=== PATIENT | male | born 1965 | race Caucasian/White ===

== ENCOUNTER 2017-11-01 13:39 | Observation (INO) | payer OTHER ==
[2017-11-01] MEDS ORDERED: cefTRIAXone IN SWFI 1,000 MG/10 ML SYRINGE IVP STA (16:03)
[2017-11-01] MEDS ORDERED: SODIUM CHLORIDE 0.9% 1,000 ML IV STA ×2 (16:03)
[2017-11-01] MEDS ORDERED: VANCOMYCIN IV PER PHARMACY 1 EACH MISC MISCELLANE PRN (16:03)
[2017-11-01] MEDS ORDERED: VANCOMYCIN 2,000 MG in SODIUM CHLORIDE 0.9% 500 ML IVPB STA (16:14)
--- NOTE | 2017-11-01 16:40 | ED ---
Lower Extremity Injury HPI - General Chief Complaint: Extremity Injury, Lower Stated Complaint: MRSA rt foot Time Seen by Provider: 11/01/17 15:55 Source: patient, RN notes reviewed, old records reviewed Mode of arrival: ambulatory Limitations: no limitations - History of Present Illness Initial Comments: Patient is a 52-year-old male presents emergency department today chief complaint of right foot pain. Patient reports that he had a surgery on his right great toe [address] Bell to remove arthritis. He reports that he was sent home and was taking doxycycline. Despite taking doxycycline he continues to have some pain in the toe as well as surrounding his erythema around the incision site. He reports this happened to him before in another orthopedic surgery. He was sent here by his orthopedic Dr. Bell for admission to start IV vancomycin. They may schedule a incision and drainage tomorrow pending how well he responds on antibiotics. He reports no fevers. Denies any streaking or redness up the leg. - Related Data Home Medications Medication Instructions Recorded Confirmed Atorvastatin [Lipitor] 40 mg PO HS 11/01/17 11/01/17 DULoxetine HCL [Cymbalta] 60 mg PO HS 11/01/17 11/01/17 Doxycycline Monohydrate 100 mg PO BID 11/01/17 11/01/17 [Vibramycin] Gabapentin [Neurontin] 300 mg PO HS 11/01/17 11/01/17 L.acidoph,Paracasei, B.lactis 1 cap PO DAILY 11/01/17 11/01/17 [Probiotic] Losartan Potassium 50 mg PO HS 11/01/17 11/01/17 Ubidecarenone [Co Q-10] 100 mg PO HS 11/01/17 11/01/17 diphenhydrAMINE HCL 50 mg PO HS PRN 11/01/17 11/01/17 [Diphenhydramine HCl] Allergies Allergy/AdvReac Type Severity Reaction Status Date / Time sulfamethoxazole Allergy Itching Verified 11/01/17 16:24 [From Bactrim] trimethoprim [From Bactrim] Allergy Itching Verified 11/01/17 16:24 ciprofloxacin [From Cipro] AdvReac Itching Verified 11/01/17 16:24 ciprofloxacin HCl AdvReac Itching Verified 11/01/17 16:24 [From Cipro] Review of Systems ROS Statement: Those systems with pertinent positive or pertinent negative responses have been documented in the HPI. ROS Other: All systems not noted in ROS Statement are negative. Past Medical History Past Medical History: Hyperlipidemia, Skin Disorder Additional Past Medical History / Comment(s): HX PALPITATIONS, RECENT FX RT CLAVICLE WITH ORIF-08/16/13-NOW INFECTED, PAST HX FX TIBIA/FIBULA AND RT ELBOW FX History of Any Multi-Drug Resistant Organisms: None Reported Past Surgical History: Orthopedic Surgery Additional Past Surgical History / Comment(s): ORIF TIB-FIB WITH PINS AND LATER REMOVAL, RT ELBOW SX, RECENT ORIF RT CLAVICLE 08/16/13 Past Anesthesia/Blood Transfusion Reactions: No Reported Reaction Past Psychological History: Anxiety Smoking Status: Never smoker Past Alcohol Use History: None Reported Past Drug Use History: None Reported - Past Family History Daughter(s) Family Medical History: Cancer General Exam - General Exam Comments Initial Comments: Patient is a pleasant 52-year-old male. Alert and oriented. No acute distress. General: Well appearing, well nourished, in no distress. Oriented x 3, normal mood and affect . Ambulating without difficulty. Skin: Good turgor, no rash, unusual bruising or prominent lesions Hair: Normal texture and distribution. HEENT: Head: Normocephalic, atraumatic, no visible or palpable masses, depressions, or scaring. Neck: Supple, without lesions, bruits, or adenopathy, thyroid non-enlarged and non-tender Heart: No cardiomegaly or thrills; regular rate and rhythm, no murmur or gallop Lungs: Clear to auscultation and percussion Extremities: No amputations or deformities, had recent right great toe surgery. Incision site does appear to have some surrounding erythema. This was drawn on with a skin marker. He does have full range of motion of the great toe. Full strength with flexion and extension. Musculoskeletal: Normal gait and station. No misalignment, asymmetry, crepitation, defects, tenderness, masses, effusions, decreased range of motion, instability, atrophy or abnormal strength or tone in the head, neck, spine, ribs , pelvis or extremities. Neurologic: CN 2-12 normal. Sensation to pain, touch, and proprioception normal. DTRs normal in upper and lower extremities. No pathologic reflexes. Psychiatric: Oriented X3, intact recent and remote memory, judgment and insight , normal mood and affect. Limitations: no limitations Course Vital Signs 11/01/17 14:55 Temperature 98.4 F Pulse Rate 104 H Respiratory 18 Rate Blood Pressure 130/67 O2 Sat by Pulse 98 Oximetry Medical Decision Making - Medical Decision Making 52-year-old male sent in by orthopedic for IV antibiotics for an infection of the right great toe. Patient has been taking doxycycline. He had an x-ray on Wednesday. Was evaluated by a surgeon today and sent here for admission. Patient was started on Rocephin and vancomycin. Lab work was obtained. Blood cultures obtained. X-ray completed over the foot. She'll admitted at this time to Dr. Bell for further evaluation and response to IV antibiotics. May need to incision and drainage surgery. - Radiology Data Radiology results: report reviewed Disposition Clinical Impression: Surgical site infection, Cellulitis of right toe, Failure of outpatient treatment Disposition: ADMITTED IP TO THIS HOSP Condition: Good Is patient prescribed a controlled substance at d/c from ED?: No When asked, does pt state using other controlled substances?: No If prescribed controlled substance>3 days was MAPS reviewed?: No If opioid is for acute pain is fill amount 7 days or less?: No If Rx opioid, was Start Talking consent form obtained?: No Referrals: Jorge Alberto Luna DO [Primary Care Provider] - 1-2 days Time of Disposition: 16:39
[2017-11-01] MEDS ORDERED: IBUPROFEN 400 MG TAB PO PRN (16:41)
[2017-11-01] MEDS ORDERED: NALOXONE 0.4 MG/ML 1 ML VIAL IV PRN (16:41)
[2017-11-01] MEDS ORDERED: ACETAMINOPHEN TAB 325 MG TAB PO PRN (16:41)
[2017-11-01] MEDS ORDERED: ALPRAZolam 0.25 MG TAB PO PRN (16:41)
[2017-11-01] MEDS ORDERED: ONDANSETRON 4 MG/2 ML VIAL IVP PRN (16:41)
[2017-11-01] MEDS ORDERED: MORPHINE SULFATE 2 MG/ML SYRINGE IV PRN (16:41)
[2017-11-01 17:05] LABS: Basophils % (A) 1 %; Eosinophils # (A) 0.2 k/uL (0-0.7); Eosinophils % (A) 3 %; HCT 44.8 % (39.0-53.0); HGB 15.7 gm/dL (13.0-17.5); Lymphocytes # (A) 2.3 k/uL (1.0-4.8); Lymphocytes % (A) 34 %; MCH 31.2 pg (25.0-35.0); MCHC 35.1 g/dL (31.0-37.0); Mean Platelet Volume 6.1; Monocytes # (A) 0.4 k/uL (0-1.0); Monocytes % (A) 6 %; Neutrophils # (A) 3.7 k/uL (1.3-7.7); Neutrophils % (A) 55 %; Platelet Count 296 k/uL (150-450); RBC 5.03 m/uL (4.30-5.90); RDW 12.8 % (11.5-15.5); WBC 6.8 k/uL (3.8-10.6)
--- NOTE | 2017-11-01 17:12 | XR ---
EXAMINATION TYPE: XR foot complete RT DATE OF EXAM: 11/01/2017 COMPARISON: NONE HISTORY: 52-year-old male pain and redness, swelling great toe. Surgery 2-3 weeks ago. TECHNIQUE: 3 views FINDINGS: Moderate degenerative joint space narrowing and marginal spurring at the first MTP joint. No acute fr acture, subluxation, or dislocation. Os peroneum noted. IMPRESSION: Moderate first MTP joint OA. No acute osseous abnormality seen.
[2017-11-01 17:15] LABS: ALT 34 U/L (21-72); AST 23 U/L (17-59); Albumin 4.8 g/dL (3.5-5.0); Alkaline Phosphatase 75 U/L (38-126); Anion Gap 12 mmol/L; Blood Urea Nitrogen 14 mg/dL (9-20); Calcium 10.1 mg/dL (8.4-10.2); Carbon Dioxide 28 mmol/L (22-30); Chloride 101 mmol/L (98-107); Glucose 113 mg/dL (74-99); Potassium 4.1 mmol/L (3.5-5.1); Sodium 141 mmol/L (137-145); Total Bilirubin 0.4 mg/dL (0.2-1.3); Total Protein 7.7 g/dL (6.3-8.2)
[2017-11-01] MEDS: Acetaminophen-Codeine 300-30mg TAB PO PRN (19:54)
[2017-11-01] MEDS ORDERED: diphenhydrAMINE 25 MG CAP PO PRN (22:49)
[2017-11-01] MEDS: GABAPENTIN 300 MG CAP PO SCH (23:27)
[2017-11-01] MEDS: ATORVASTATIN 40 MG TAB PO SCH (23:27)
[2017-11-01] MEDS: DULoxetine HCL 60 MG CAPSULE.DR PO SCH (23:27)
[2017-11-01] MEDS: LOSARTAN 50 MG TAB PO SCH (23:27)
[2017-11-01] MEDS: SODIUM CHLORIDE 0.9% 1,000 ML IV SCH (23:29)
[2017-11-02] MEDS: VANCOMYCIN 2,000 MG in SODIUM CHLORIDE 0.9% 500 ML IVPB SCH ×4 (00:07→23:25)
[2017-11-02] MEDS: SODIUM CHLORIDE 0.9% 1,000 ML IV SCH ×3 (03:22→22:42)
[2017-11-02] MEDS ORDERED: PANTOPRAZOLE 40 MG/10 ML VIAL IV SCH (09:00)
--- NOTE | 2017-11-02 11:25 | P.HPOR ---
History of Present Illness H&P Date: 11/02/17 Chief Complaint: Right foot infection The patient is a 52-year-old male who is known to our practice. He underwent a right hallux MTP cheilectomy by Dr. Bell approximately on 10/11/17. He developed some redness, drainage, and swelling of the incision site was placed on Keflex on 10/25/17. The patient seemed to not improve with Keflex and the antibiotic was switched to Doxycycline on 10/28/2017 due to an allergy to Bactrim. The patient is concerned for MRSA infection since he had a previous infection after a clavicle surgery with Dr. Lucas Billingsley that he developed MRSA. He denies fever, chills, rigors, shortness breath, chest pain, and abdominal pain today. The patient was sent to the emergency department yesterday from our office due to concerns of ongoing infection. The patient was started on Vancomycin. We are awaiting evaluation by Dr. Castañeda. The patient seems to be improving on IV antibiotics and the patient feels well today. Review of Systems Constitutional: Denies chills, Denies fatigue, Denies fever Cardiovascular: Denies chest pain, Denies shortness of breath Respiratory: Denies cough Gastrointestinal: Denies abdominal pain, Denies diarrhea, Denies nausea, Denies vomiting Musculoskeletal: right: foot pain, foot swelling Past Medical History Past Medical History: Hyperlipidemia, Skin Disorder Additional Past Medical History / Comment(s): HX PALPITATIONS, RECENT FX RT CLAVICLE WITH ORIF-08/16/13-NOW INFECTED, PAST HX FX TIBIA/FIBULA AND RT ELBOW FX History of Any Multi-Drug Resistant Organisms: None Reported Past Surgical History: Orthopedic Surgery Additional Past Surgical History / Comment(s): ORIF TIB-FIB WITH PINS AND LATER REMOVAL, RT ELBOW SX, RECENT ORIF RT CLAVICLE 08/16/13 Past Anesthesia/Blood Transfusion Reactions: No Reported Reaction Past Psychological History: Anxiety Additional Psychological History / Comment(s): SADD Smoking Status: Never smoker Past Alcohol Use History: None Reported Past Drug Use History: None Reported - Past Family History Daughter(s) Family Medical History: Cancer Medications and Allergies Home Medications Medication Instructions Recorded Confirmed Type Atorvastatin [Lipitor] 40 mg PO HS 11/01/17 11/01/17 History DULoxetine HCL [Cymbalta] 60 mg PO HS 11/01/17 11/01/17 History Doxycycline Monohydrate 100 mg PO BID 11/01/17 11/01/17 History [Vibramycin] Gabapentin [Neurontin] 300 mg PO HS 11/01/17 11/01/17 History L.acidoph,Paracasei, B.lactis 1 cap PO DAILY 11/01/17 11/01/17 History [Probiotic] Losartan Potassium 50 mg PO HS 11/01/17 11/01/17 History Ubidecarenone [Co Q-10] 100 mg PO HS 11/01/17 11/01/17 History diphenhydrAMINE HCL 50 mg PO HS PRN 11/01/17 11/01/17 History [Diphenhydramine HCl] Allergies Allergy/AdvReac Type Severity Reaction Status Date / Time sulfamethoxazole Allergy Itching Verified 11/01/17 16:24 [From Bactrim] trimethoprim [From Bactrim] Allergy Itching Verified 11/01/17 16:24 ciprofloxacin [From Cipro] AdvReac Itching Verified 11/01/17 16:24 ciprofloxacin HCl AdvReac Itching Verified 11/01/17 16:24 [From Cipro] Physical Examination The patient is a 52 y/o male who is in no acute distress. He is alert and oriented x3. On inspection of the patient's right foot, there is a healing incision over the first MTP joint. There is mild erythema surrounding the incision, that appears to be improving. No drainage or fluctuance. Sensation is intact to light touch in the tip of the big toe. Foot is warm and well perfused with brisk capillary refill. Results - Labs Labs: Abnormal Lab Results - Last 24 Hours (Table) 11/01/17 11/01/17 Range/Units 16:42 16:42 Glucose 113 H (74-99) mg/dL Plasma Lactic Acid Toni 2.5 H* (0.7-2.0) mmol/L H & H 11/01/17 Range/Units 16:42 Hgb 15.7 (13.0-17.5) gm/dL Hct 44.8 (39.0-53.0) % Result Diagrams: 11/01/17 16:42 11/01/17 16:42 - Diagnostic results Ankle/Foot x-ray: image reviewed (X-ray of the right foot reveals status post MTP cheilectomy. ) Assessment and Plan (1) Cellulitis of right toe Current Visit: Yes Status: Acute Code(s): L03.031 - CELLULITIS OF RIGHT TOE SNOMED Code(s): 26949109 (2) Failure of outpatient treatment Current Visit: Yes Status: Acute Code(s): Z78.9 - OTHER SPECIFIED HEALTH STATUS SNOMED Code(s): 172682043 (3) Surgical site infection Current Visit: Yes Status: Acute Code(s): T81.4XXA - INFECTION FOLLOWING A PROCEDURE, INITIAL ENCOUNTER SNOMED Code(s): 58677248 Plan: The clinical findings were discussed with the patient. The case was also discussed with Dr. Bell. Continue IV antibiotics. Consult infectious disease, Dr. Castañeda, for antibiotics recommedations. No surgical intervention in the form of an I&D is needed at this time. He will likely be discharged tomorrow pending Dr. Castañeda' recommendation and continued improvement of infection. We will continue to monitor the patient closely.
[2017-11-02] MEDS: Acetaminophen-Codeine 300-30mg TAB PO PRN (17:33)
[2017-11-02] MEDS: LOSARTAN 50 MG TAB PO SCH (20:18)
[2017-11-02] MEDS: ATORVASTATIN 40 MG TAB PO SCH (20:18)
[2017-11-02] MEDS: DULoxetine HCL 60 MG CAPSULE.DR PO SCH (20:19)
[2017-11-02] MEDS: GABAPENTIN 300 MG CAP PO SCH (20:19)
--- NOTE | 2017-11-03 00:25 | P.CONS ---
History of Present Illness - Reason for Consult Consult date: 11/02/17 - Chief Complaint Pain right foot - History of Present Illness Pleasant 52-year-old male who has a history of significant arthritis from prior trauma in foot fracture years ago. Was having increasing difficulty with his great toe and constantly underwent a surgical intervention to improve the arthritis to the area. Patient however developed some increasing discomfort and some erythema to the site. He was treated with outpatient antibiotic therapy first with cephalexin and then with doxycycline. This began back therapy was not improving. He was seen in then brought into hospital for further intervention in antibiotic therapy with vancomycin was begun and the patient is her history to show some improvement. The overall goal is to try to prevent further surgical intervention if possible. The patient is denying high- grade fevers chills or rigors or sweats. 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 He does have a history of a prior clavicular fracture that required several debridements after the original repair and there was evidence of infection, patient relates a staphylococcal infection but we do not have cultures at this facility. Review of Systems HEENT:Denies headache or acute visual change. Denies sinus or mouth discomforts. Denies neck stiffness or pain. Denies significant oral cavity pain. Denies difficulty on swallowing. Lungs: Denies significant shortness of breath, cough, sputum production, or hemoptysis. Cardiovascular: Denies significant shortness of breath, chest pain, chest wall pain, orthopnea, dyspnea on exertion, syncope Gastrointestinal:Denies nausea, vomiting, diarrhea, constipation, hematemesis, melena, hematochezia. No no significant change of bowel habit noticed. Musculoskeletal: As per the HPI Skin: Is evidence of the swelling and discomfort to the right great toe. Neuro : Denies headache or visual change. Denies any new onset weakness or difficulty with ambulation. Denies falls or seizures. Psychiatric:Denies anxiety or depression. Endocrine: Denies significant fatigue, denies significant weight loss or weight gain. Past Medical History Past Medical History: Hyperlipidemia, Skin Disorder Additional Past Medical History / Comment(s): HX PALPITATIONS, RECENT FX RT CLAVICLE WITH ORIF-08/16/13-NOW INFECTED, PAST HX FX TIBIA/FIBULA AND RT ELBOW FX History of Any Multi-Drug Resistant Organisms: None Reported Past Surgical History: Orthopedic Surgery Additional Past Surgical History / Comment(s): ORIF TIB-FIB WITH PINS AND LATER REMOVAL, RT ELBOW SX, RECENT ORIF RT CLAVICLE 08/16/13 Past Anesthesia/Blood Transfusion Reactions: No Reported Reaction Past Psychological History: Anxiety Additional Psychological History / Comment(s): and lives in the family home with his . Frequently travels to [place]. 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 Does have international travel. Most of the time usually goes between [place] and [place]. Most travels been to the [place]. No animals in the home. 2 adult children. Relates father of complications of smoking and lung cancer has been a lifelong nonsmoker denies smoking alcohol or drug use. Smoking Status: Never smoker Past Alcohol Use History: None Reported Past Drug Use History: None Reported - Past Family History Daughter(s) Family Medical History: Cancer Medications and Allergies Home Medications and Allergies Comment(s): Current Medications Acetaminophen (Tylenol Tab) 650 mg PO Q6HR PRN PRN Reason: Mild Pain or Fever > 100.5 Acetaminophen/Codeine Phosphate (Tylenol #3) 1 each PO Q4HR PRN PRN Reason: Moderate Pain Last Admin: 11/02/17 17:33 Dose: 1 each Alprazolam (Xanax) 0.25 mg PO Q6HR PRN PRN Reason: Anxiety Last Admin: 11/02/17 20:19 Dose: 0.25 mg Atorvastatin Calcium (Lipitor) 40 mg PO HS ADOLFO Last Admin: 11/02/17 20:18 Dose: 40 mg Diphenhydramine HCl (Benadryl) 50 mg PO HS PRN PRN Reason: Insomnia Last Admin: 11/01/17 23:27 Dose: 50 mg Duloxetine HCl (Cymbalta) 60 mg PO HS ADOLFO Last Admin: 11/02/17 20:19 Dose: 60 mg Gabapentin (Neurontin) 300 mg PO HS ADOLFO Last Admin: 11/02/17 20:19 Dose: 300 mg Sodium Chloride (Saline 0.9%) 1,000 mls @ 100 mls/hr IV .Q10H ADOLFO Last Admin: 11/02/17 22:42 Dose: Not Given Vancomycin HCl 2,000 mg/ (Sodium Chloride) 500 mls @ 167 mls/hr IVPB Q8HR ADOLFO Last Admin: 11/02/17 23:25 Dose: 167 mls/hr Ibuprofen (Motrin) 400 mg PO Q6HR PRN PRN Reason: Mild Pain or Fever > 100.5 Losartan Potassium (Cozaar) 50 mg PO [facility] Last Admin: 11/02/17 20:18 Dose: 50 mg Miscellaneous Information (Vancomycin Trough Due) 0 each MISCELLANE DIRECTED ONE Stop: 11/03/17 07:01 Morphine Sulfate (Morphine Sulfate (Inj)) 4 mg IV Q4HR PRN PRN Reason: Severe Pain Naloxone HCl (Narcan) 0.2 mg IV Q2M PRN PRN Reason: Opioid Reversal Ondansetron HCl (Zofran) 4 mg IVP Q8HR PRN PRN Reason: Nausea And Vomiting Pantoprazole Sodium (Protonix) 40 mg PO DAILY [facility] Home Medications Medication Instructions Recorded Confirmed Type Atorvastatin [Lipitor] 40 mg PO HS 11/01/17 11/01/17 History DULoxetine HCL [Cymbalta] 60 mg PO HS 11/01/17 11/01/17 History Doxycycline Monohydrate 100 mg PO BID 11/01/17 11/01/17 History [Vibramycin] Gabapentin [Neurontin] 300 mg PO HS 11/01/17 11/01/17 History L.acidoph,Paracasei, B.lactis 1 cap PO DAILY 11/01/17 11/01/17 History [Probiotic] Losartan Potassium 50 mg PO HS 11/01/17 11/01/17 History Ubidecarenone [Co Q-10] 100 mg PO HS 11/01/17 11/01/17 History diphenhydrAMINE HCL 50 mg PO HS PRN 11/01/17 11/01/17 History [Diphenhydramine HCl] Allergies Allergy/AdvReac Type Severity Reaction Status Date / Time sulfamethoxazole Allergy Itching Verified 11/01/17 16:24 [From Bactrim] trimethoprim [From Bactrim] Allergy Itching Verified 11/01/17 16:24 ciprofloxacin [From Cipro] AdvReac Itching Verified 11/01/17 16:24 ciprofloxacin HCl AdvReac Itching Verified 11/01/17 16:24 [From Cipro] Physical Exam Vitals: Vital Signs Temp Pulse Resp BP Pulse Ox 11/02/17 22:44 97.0 F L 78 18 140/81 96 11/02/17 15:00 97.2 F L 86 18 120/71 95 11/02/17 06:31 97.3 F L 72 17 122/71 Intake and Output 11/02/17 11/02/17 11/03/17 14:59 22:59 06:59 Other: # Voids 3 1 1 # Bowel Movements 0 0 Weight 111.13 kg Pleasant 52-year-old male who is quite comfortable at this time HEENT: Anicteric conjunctiva are pink and moist nasal mucosa grossly intact without significant lesions, there is no thrush. Neck: The neck is supple without significant lymphadenopathy or thyromegaly. Lungs: Good bilateral air entry without significant crackles or wheezing. There is no significant bronchial sounds. There is no egophony or dullness. Heart: Regular rate and rhythm with an audible S1-S2, no S3 no S4. There is no significant murmur click or rub, PMI was nondisplaced. Abdomen: Mildly obese Positive bowel sounds soft and nontender without palpable masses or organomegaly. There was no guarding or rebound. Extremities: The upper extremities have excellent pulses they are symmetric, no significant petechiae or telangiectasia. No splinter hemorrhages were noted. The lower extremities are free from significant edema. The peripheral pulses were 2+ and symmetric. The right clavicle that has been repaired has some chronic tenderness but no erythema or crepitance or fluctuance. The right great toe has evidence of the minimal swelling, the surgical wound is healing well, there is some erythema and tenderness to manipulation. There is no expressible purulence. There is no ascending erythema. There is no lymphadenopathy in the inguinal area. No other abnormal lymph nodes are noted. Neuro: Awake alert oriented to person place and time. There are no acute new gross focal sensory motor deficits. Results CBC & Chem 7: 11/01/17 16:42 11/01/17 16:42 Labs: Microbiology - Last 24 Hours (Table) 11/01/17 16:42 Blood Culture - Preliminary Blood No Growth after 24 hours Laboratory Results WBC 6.8 k/uL (3.8-10.6) 11/01/17 16:42 RBC 5.03 m/uL (4.30-5.90) 11/01/17 16:42 Hgb 15.7 gm/dL (13.0-17.5) 11/01/17 16:42 Hct 44.8 % (39.0-53.0) 11/01/17 16:42 MCV 89.0 fL (80.0-100.0) 11/01/17 16:42 MCH 31.2 pg (25.0-35.0) 11/01/17 16:42 MCHC 35.1 g/dL (31.0-37.0) 11/01/17 16:42 RDW 12.8 % (11.5-15.5) 11/01/17 16:42 Plt Count 296 k/uL (150-450) 11/01/17 16:42 Neutrophils % 55 % 11/01/17 16:42 Lymphocytes % 34 % 11/01/17 16:42 Monocytes % 6 % 11/01/17 16:42 Eosinophils % 3 % 11/01/17 16:42 Basophils % 1 % 11/01/17 16:42 Neutrophils # 3.7 k/uL (1.3-7.7) 11/01/17 16:42 Lymphocytes # 2.3 k/uL (1.0-4.8) 11/01/17 16:42 Monocytes # 0.4 k/uL (0-1.0) 11/01/17 16:42 Eosinophils # 0.2 k/uL (0-0.7) 11/01/17 16:42 Basophils # 0.0 k/uL (0-0.2) 11/01/17 16:42 Sodium 141 mmol/L (137-145) 11/01/17 16:42 Potassium 4.1 mmol/L (3.5-5.1) 11/01/17 16:42 Chloride 101 mmol/L (98-107) 11/01/17 16:42 Carbon Dioxide 28 mmol/L (22-30) 11/01/17 16:42 Anion Gap 12 mmol/L 11/01/17 16:42 BUN 14 mg/dL (9-20) 11/01/17 16:42 Creatinine 0.80 mg/dL (0.66-1.25) 11/01/17 16:42 Est GFR (CKD-EPI)AfAm >90 (>60 ml/min/1.73 sqM) 11/01/17 16:42 Est GFR (CKD-EPI)NonAf >90 (>60 ml/min/1.73 sqM) 11/01/17 16:42 Glucose 113 mg/dL (74-99) H 11/01/17 16:42 Lactic Ac Sepsis Rflx Y 11/01/17 17:21 Plasma Lactic Acid Toni 1.3 mmol/L (0.7-2.0) 11/01/17 20:58 Calcium 10.1 mg/dL (8.4-10.2) 11/01/17 16:42 Total Bilirubin 0.4 mg/dL (0.2-1.3) 11/01/17 16:42 AST 23 U/L (17-59) 11/01/17 16:42 ALT 34 U/L (21-72) 11/01/17 16:42 Alkaline Phosphatase 75 U/L (38-126) 11/01/17 16:42 Total Protein 7.7 g/dL (6.3-8.2) 11/01/17 16:42 Albumin 4.8 g/dL (3.5-5.0) 11/01/17 16:42 Microbiology 11/01/17 16:42 Blood Blood Culture - Preliminary No Growth after 24 hours Assessment and Plan Assessment: Pleasant 52-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 He Was Taken to the Operating Room for Debridement of the Joints. He was doing well but then developed evidence of some swelling erythema and discomfort to the site. He was treated with outpatient antibiotic therapy and despite cephalexin and doxycycline he has not had improvement. He was brought into hospital and treated with a course of vancomycin therapy is ready showing some improvements with antibiotic and elevation. Pain control is adequate. We' ll ask for MRI to the site to ensure there is not underlying osteomyelitis to might require further or more intensive antibiotic therapy at the time of his discharge. If there is evidence of underlying osteomyelitis may do well to have a biopsy that site to further characterize the infection. Otherwise with his ALLERGIES there may be the ability to transition him to alternative antibiotic therapy at discharge. The lactic acid was elevated at admission and those are improving with hydration and some antibiotic therapy. Laboratories requested. (1) Cellulitis of right toe Current Visit: Yes Status: Acute Code(s): L03.031 - CELLULITIS OF RIGHT TOE SNOMED Code(s): 79489498 (2) Failure of outpatient treatment Current Visit: Yes Status: Acute Code(s): Z78.9 - OTHER SPECIFIED HEALTH STATUS SNOMED Code(s): 625178229
[2017-11-03] MEDS ORDERED: VANCOMYCIN TROUGH DUE 1 EACH MISC MISCELLANE ONE ×2 (07:00→21:00)
[2017-11-03] MEDS ORDERED: PANTOPRAZOLE 40 MG TABLET PO SCH (09:00)
[2017-11-03] MEDS ORDERED: PANTOPRAZOLE 40 MG TABLET PO ONE (09:00)
[2017-11-03 09:23] LABS: Anion Gap 7 mmol/L; Blood Urea Nitrogen 11 mg/dL (9-20); Carbon Dioxide 30 mmol/L (22-30); Chloride 104 mmol/L (98-107); Glucose 105 mg/dL (74-99); Potassium 4.8 mmol/L (3.5-5.1); Sodium 141 mmol/L (137-145)
[2017-11-03] MEDS: SODIUM CHLORIDE 0.9% 1,000 ML IV SCH ×2 (10:57→18:48)
[2017-11-03] MEDS: VANCOMYCIN 2,000 MG in SODIUM CHLORIDE 0.9% 500 ML IVPB SCH (10:57)
--- NOTE | 2017-11-03 11:21 | P.PN ---
Subjective Progress Note Date: 11/03/17 Principal diagnosis: Right foot infection The patient is a 52 y/o male who we have been following closely for an infection post-operatively of his right foot. The patient was sent to the ER two days ago for IV antibiotics and infectious disease evaluation. Dr. Castañeda has seen the patient and ordered an MRI of the right foot. He seems to be improving on IV vancomycin. Today, he denies fever, chills, rigors, chest pain , shortness of breath, and abdominal pain. No new complaints today. Objective - Vital Signs Vital signs: Vital Signs Temp 97.0 F L 11/02/17 22:44 Pulse 78 11/02/17 22:44 Resp 18 11/02/17 22:44 BP 140/81 11/02/17 22:44 Pulse Ox 96 11/02/17 22:44 Intake & Output 11/02/17 11/03/17 11/03/17 18:59 06:59 18:59 Weight 111.13 kg Other: # Voids 2 1 # Bowel Movements 0 - Exam The patient is a 52-year-old male who is in no acute distress. He is alert and oriented 3. On inspection of the patient's right foot, there is a healing incision over the first MTP joint. There is mild erythema surrounding the incision, that appears to be improving since admission. No drainage or fluctuance noted. Sensation intact to light touch to the tip of the big toe. Foot is warm and well perfused with brisk cap refill. - Labs CBC & Chem 7: 11/01/17 16:42 11/01/17 16:42 Labs: Microbiology - Last 24 Hours (Table) 11/01/17 16:42 Blood Culture - Preliminary Blood No Growth after 24 hours Assessment and Plan (1) Cellulitis of right toe Current Visit: Yes Status: Acute Code(s): L03.031 - CELLULITIS OF RIGHT TOE SNOMED Code(s): 49745787 (2) Failure of outpatient treatment Current Visit: Yes Status: Acute Code(s): Z78.9 - OTHER SPECIFIED HEALTH STATUS SNOMED Code(s): 833206540 (3) Surgical site infection Current Visit: Yes Status: Acute Code(s): T81.4XXA - INFECTION FOLLOWING A PROCEDURE, INITIAL ENCOUNTER SNOMED Code(s): 05596500 Plan: The clinical findings were discussed with the patient. The case was also discussed with Dr. Bell. He was evaluated by Dr. Bell today. Continue IV antibiotics. We will await MRI results and antibiotics recommedations per Dr. Castañeda. No surgical intervention in the form of an I&D is needed at this time. He will likely be discharged later today pending Dr. Castañeda' recommendation and continued improvement of infection. We will continue to monitor the patient closely.
[2017-11-03] MEDS ORDERED: VANCOMYCIN 2,000 MG in SODIUM CHLORIDE 0.9% 500 ML IVPB SCH (14:00)
[2017-11-03 14:31] LABS: C Reactive Protein <5.0 mg/L (<10.0)
--- NOTE | 2017-11-03 15:17 | MR ---
MRI right foot with and without contrast HISTORY: Osteomyelitis of right great toe, wound, pain and erythema and swelling Correlation to right foot 11/01/2017 Multiplanar multisequence and postcontrast images obtained through the right foot following 10 cc David avist IV There is edema within the soft tissues dorsal to the first digit especially at the level of the metat arsophalangeal joint. Bone marrow signal is remarkable for small focus of increased signal on T2-weig hted sequences in the subchondral location at distal first metatarsal which I suspect may represent g eode formation, there is osteoarthritic change with joint space loss, marginal spurring at this level . Flexor and extensor tendons are intact. There is some enhancement of the dorsal soft tissues of the first digit. IMPRESSION: Findings felt likely represent cellulitis, follow-up as indicated. Osteomyelitis is not e vident. Additional findings above.
[2017-11-03 15:43] VITALS: BP 128/81; TEMP 98.3
[2017-11-03 20:02] VITALS: PULSE 95; RESP 14
--- NOTE | 2017-11-03 22:08 | P.PN ---
Subjective Progress Note Date: 11/03/17 Mirna 52-year-old male who has a history of significant arthritis from prior trauma in foot fracture years ago. Was having increasing difficulty with his great toe and constantly underwent a surgical intervention to improve the arthritis to the area. Patient however developed some increasing discomfort and some erythema to the site. He was treated with outpatient antibiotic therapy first with cephalexin and then with doxycycline. This began back therapy was not improving. He was seen in then brought into hospital for further intervention in antibiotic therapy with vancomycin was begun and the patient is her history to show some improvement. The overall goal is to try to prevent further surgical intervention if possible. The patient is denying high- grade fevers chills or rigors or sweats. 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 He does have a history of a prior clavicular fracture that required several debridements after the original repair and there was evidence of infection, patient relates a staphylococcal infection but we do not have cultures at this facility. 11/03/2017 patient has improved further, MRI is complete and does not reveal evidence of osteomyelitis. Objective - Vital Signs Vital signs: Vital Signs Temp 98.3 F 11/03/17 15:00 Pulse 95 11/03/17 16:30 Resp 14 11/03/17 16:30 BP 128/81 11/03/17 15:00 Pulse Ox 94 L 11/03/17 15:00 Intake & Output 11/03/17 11/03/17 11/04/17 06:59 18:59 06:59 Weight 111.13 kg Other: Voiding Method Toilet # Voids 1 2 # Bowel Movements 0 - Exam Mirna 52-year-old male who is quite comfortable at this time HEENT: Anicteric conjunctiva are pink and moist nasal mucosa grossly intact without significant lesions, there is no thrush. Neck: The neck is supple without significant lymphadenopathy or thyromegaly. Lungs: Good bilateral air entry without significant crackles or wheezing. There is no significant bronchial sounds. There is no egophony or dullness. Heart: Regular rate and rhythm with an audible S1-S2, no S3 no S4. There is no significant murmur click or rub, PMI was nondisplaced. Abdomen: Mildly obese Positive bowel sounds soft and nontender without palpable masses or organomegaly. There was no guarding or rebound. Extremities: The upper extremities have excellent pulses they are symmetric, no significant petechiae or telangiectasia. No splinter hemorrhages were noted. The lower extremities are free from significant edema. The peripheral pulses were 2+ and symmetric. The right clavicle that has been repaired has some chronic tenderness but no erythema or crepitance or fluctuance. The right great toe has evidence of the minimal swelling, the surgical wound is healing well, there is some erythema and tenderness to manipulation. There is no expressible purulence. There is no ascending erythema. There is no lymphadenopathy in the inguinal area. No other abnormal lymph nodes are noted. Neuro: Awake alert oriented to person place and time. There are no acute new gross focal sensory motor deficits. - Labs CBC & Chem 7: 11/01/17 16:42 11/03/17 07:07 Labs: Abnormal Lab Results - Last 24 Hours (Table) 11/03/17 Range/Units 07:07 Glucose 105 H (74-99) mg/dL Microbiology - Last 24 Hours (Table) 11/01/17 16:42 Blood Culture - Preliminary Blood No Growth after 48 hours Laboratory Results WBC 6.8 k/uL (3.8-10.6) 11/01/17 16:42 RBC 5.03 m/uL (4.30-5.90) 11/01/17 16:42 Hgb 15.7 gm/dL (13.0-17.5) 11/01/17 16:42 Hct 44.8 % (39.0-53.0) 11/01/17 16:42 MCV 89.0 fL (80.0-100.0) 11/01/17 16:42 MCH 31.2 pg (25.0-35.0) 11/01/17 16:42 MCHC 35.1 g/dL (31.0-37.0) 11/01/17 16:42 RDW 12.8 % (11.5-15.5) 11/01/17 16:42 Plt Count 296 k/uL (150-450) 11/01/17 16:42 Neutrophils % 55 % 11/01/17 16:42 Lymphocytes % 34 % 11/01/17 16:42 Monocytes % 6 % 11/01/17 16:42 Eosinophils % 3 % 11/01/17 16:42 Basophils % 1 % 11/01/17 16:42 Neutrophils # 3.7 k/uL (1.3-7.7) 11/01/17 16:42 Lymphocytes # 2.3 k/uL (1.0-4.8) 11/01/17 16:42 Monocytes # 0.4 k/uL (0-1.0) 11/01/17 16:42 Eosinophils # 0.2 k/uL (0-0.7) 11/01/17 16:42 Basophils # 0.0 k/uL (0-0.2) 11/01/17 16:42 ESR 10 mm/hr (0-15) 11/03/17 07:02 Sodium 141 mmol/L (137-145) 11/03/17 07:07 Potassium 4.8 mmol/L (3.5-5.1) 11/03/17 07:07 Chloride 104 mmol/L (98-107) 11/03/17 07:07 Carbon Dioxide 30 mmol/L (22-30) 11/03/17 07:07 Anion Gap 7 mmol/L 11/03/17 07:07 BUN 11 mg/dL (9-20) 11/03/17 07:07 Creatinine 0.92 mg/dL (0.66-1.25) 11/03/17 07:07 Est GFR (CKD-EPI)AfAm >90 (>60 ml/min/1.73 sqM) 11/03/17 07:07 Est GFR (CKD-EPI)NonAf >90 (>60 ml/min/1.73 sqM) 11/03/17 07:07 Glucose 105 mg/dL (74-99) H 11/03/17 07:07 Lactic Ac Sepsis Rflx Y 11/01/17 17:21 Plasma Lactic Acid Toni 1.3 mmol/L (0.7-2.0) 11/01/17 20:58 Calcium 9.0 mg/dL (8.4-10.2) 11/03/17 07:07 Total Bilirubin 0.4 mg/dL (0.2-1.3) 11/01/17 16:42 AST 23 U/L (17-59) 11/01/17 16:42 ALT 34 U/L (21-72) 11/01/17 16:42 Alkaline Phosphatase 75 U/L (38-126) 11/01/17 16:42 C-Reactive Protein <5.0 mg/L (<10.0) 11/03/17 07:07 Total Protein 7.7 g/dL (6.3-8.2) 11/01/17 16:42 Albumin 4.8 g/dL (3.5-5.0) 11/01/17 16:42 Vancomycin Trough 26.6 ug/mL 11/03/17 07:07 Microbiology 11/01/17 16:42 Blood Blood Culture - Preliminary No Growth after 48 hours - Imaging and Cardiology MRI viewed and is without evidence of osteomyelitis, septic arthritis or abscess Assessment and Plan Assessment: Pleasant 52-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 He Was Taken to the Operating Room for Debridement of the Joints. He was doing well but then developed evidence of some swelling erythema and discomfort to the site. He was treated with outpatient antibiotic therapy and despite cephalexin and doxycycline he has not had improvement. He was brought into hospital and treated with a course of vancomycin therapy is ready showing some improvements with antibiotic and elevation. Pain control is adequate. We' ll ask for MRI to the site to ensure there is not underlying osteomyelitis to might require further or more intensive antibiotic therapy at the time of his discharge. If there is evidence of underlying osteomyelitis may do well to have a biopsy that site to further characterize the infection. Otherwise with his ALLERGIES there may be the ability to transition him to alternative antibiotic therapy at discharge. The lactic acid was elevated at admission and those are improving with hydration and some antibiotic therapy. Laboratories requested. 11/03/2017 patient has improved with current therapy and feels better, less anxious about the toe. MRI is without evidence of deep infection and ESR and CRP are normal also corroborate the lack of deep infection. The patient relates that when he had his clavicular infection he was treated with antibiotic therapy and developed a rash when given intravenous Bactrim along with ciprofloxacin. He has taken oral Bactrim in the past with no difficulties. The patient will complete his dose of vancomycin currently. He will start oral Bactrim the morning and contact me if there is any difficulties. He may be discharged home. No evidence of any deep infection and any restrictions as per the orthopedic surgeon. (1) Cellulitis of right toe Status: Acute Code(s): L03.031 - CELLULITIS OF RIGHT TOE SNOMED Code(s): 53507180 (2) Failure of outpatient treatment Status: Acute Code(s): Z78.9 - OTHER SPECIFIED HEALTH STATUS SNOMED Code(s) : 487545453
--- NOTE | 2017-11-09 09:31 | P.DS ---
Providers Date of admission: 11/01/17 16:41 Expected date of discharge: 11/03/17 Attending physician: Lior Bell Consults: 11/02/17 10:24 Consult Physician Routine Consulting Provider: Lazarus Castañeda Consult Reason/Comments: antibiotic recommendations Do you want consulting provider notified?: Yes Primary care physician: Jorge Alberto Luna - Discharge Diagnosis(es) (1) Cellulitis of right toe Status: Acute (2) Failure of outpatient treatment Status: Acute (3) Surgical site infection Status: Acute Hospital Course: The patient is a 52-year-old male who is status post right hallux MTP cheilectomy by Dr. Bell on 10/11/2017. He developed some redness and drainage from the incision site was started on Keflex on 10/25/2017. The patient seemed to not improve on the Keflex and the antibiotic was changed to doxycycline on 10/28/2017 due to an ALLERGY to Bactrim. The patient is concerned about a MRSA infection due to a previous infection with MRSA after clavicle surgery of Dr. Lucas Billingsley.. The patient was started on vancomycin after admission to the hospital. The patient was evaluated by Dr. Castañeda. The infection seemed to improve and an MRI of the right foot was obtained. He now is ready for discharge home today. on the day of discharge, the patient is in no acute distress. He is alert and oriented 3. On inspection of the patient's right foot, there is a healing incision over the first MTP joint. There is mild erythema surrounding the incision, that appears to be improving. No drainage or fluctuance noted. Sensation is intact to light touch to the tip of the big toe. Foot is warm and well perfused with brisk capillary refill. Pertinent Studies: Laboratory Tests 11/01/17 11/01/17 11/01/17 16:42 16:42 20:58 WBC 6.8 RBC 5.03 Hgb 15.7 Hct 44.8 Glucose Plasma Lactic Acid Toni 2.5 H* 1.3 Vancomycin Trough 11/03/17 11/03/17 07:07 07:07 WBC RBC Hgb Hct Glucose 105 H Plasma Lactic Acid Toni Vancomycin Trough 26.6 Patient Condition at Discharge: Stable Plan - Discharge Summary Discharge Rx Participant: Yes New Discharge Prescriptions: New Sulfamethox-Tmp 800-160Mg [Bactrim DS 800-160 mg] 1 tab PO Q12HR #14 tab No Action Ubidecarenone [Co Q-10] 100 mg PO HS Losartan Potassium 50 mg PO HS Atorvastatin [Lipitor] 40 mg PO HS L.acidoph,Paracasei, B.lactis [Probiotic] 1 cap PO DAILY Gabapentin [Neurontin] 300 mg PO HS Doxycycline Monohydrate [Vibramycin] 100 mg PO BID DULoxetine HCL [Cymbalta] 60 mg PO HS diphenhydrAMINE HCL [Diphenhydramine HCl] 50 mg PO HS PRN PRN Reason: Insomnia Discharge Medication List Atorvastatin [Lipitor] 40 mg PO HS 11/01/17 [History] DULoxetine HCL [Cymbalta] 60 mg PO HS 11/01/17 [History] Doxycycline Monohydrate [Vibramycin] 100 mg PO BID 11/01/17 [History] Gabapentin [Neurontin] 300 mg PO HS 11/01/17 [History] L.acidoph,Paracasei, B.lactis [Probiotic] 1 cap PO DAILY 11/01/17 [History] Losartan Potassium 50 mg PO HS 11/01/17 [History] Ubidecarenone [Co Q-10] 100 mg PO HS 11/01/17 [History] diphenhydrAMINE HCL [Diphenhydramine HCl] 50 mg PO HS PRN 11/01/17 [History] Sulfamethox-Tmp 800-160Mg [Bactrim DS 800-160 mg] 1 tab PO Q12HR #14 tab [Rx] Follow up Appointment(s)/Referral(s): Lazarus Castañeda MD [STAFF PHYSICIAN] - As Needed Jorge Alberto Luna DO [Primary Care Provider] - 1-2 days (after hours discharge, patient to make self appointments. ) Lior Bell MD [Medical Doctor] - 1 Week (after hours discharge. patient to make self appointments. ) Patient Instructions/Handouts: Wound Infection (DC) Activity/Diet/Wound Care/Special Instructions: Weightbearing as tolerated Call [facility] with any questions or concerns, . Discharge Disposition: HOME SELF-CARE
== END 2017-11-03 18:52 | disposition home or self-care (01) ==
LOC: EC 13:39 → 4MS4W 16:41 → INTOOBSV 16:41 → 4MS4W 21:28 → UNDODISIN 11-03 18:52
PROVIDERS: ADMIT Orthopaedic Surgery; ATTEND Orthopaedic Surgery
DX: T81.4XXA Infection following a procedure, initial encounter (principal); L03.031 Cellulitis of right toe; E78.5 Hyperlipidemia, unspecified; F41.9 Anxiety disorder, unspecified; Z79.899 Other long term (current) drug therapy; Z79.2 Long term (current) use of antibiotics; Z88.1 Allergy status to other antibiotic agents; Z88.2 Allergy status to sulfonamides; Z87.828 Personal history of other (healed) physical injury and trauma; Z80.1 Family history of malignant neoplasm of trachea, bronchus and lung; M19.071 Primary osteoarthritis, right ankle and foot; Z86.14 Personal history of Methicillin resistant Staphylococcus aureus infection; E66.9 Obesity, unspecified; Z68.34 Body mass index [BMI] 34.0-34.9, adult
CPT/HCPCS: 96361 ×3; 96366 ×3; 96375 ×2; 96365; 99285; 36415; 80053; 80048; 85652; 83605; 85025; 80202; 86140; 87040; 73630; 73720; G0378 ×3; J3370 ×3; J0696; C9113; A9581

== ENCOUNTER 2018-12-20 15:41 | Emergency (ER) | payer OTHER ==
[2018-12-20 15:53] VITALS: TEMP 97.8
[2018-12-20] MEDS ORDERED: SODIUM CHLORIDE 0.9% 1,000 ML IV STA (16:52)
[2018-12-20] MEDS ORDERED: METOCLOPRAMIDE 5 MG/ML 2 ML VIAL IVP STA (16:52)
[2018-12-20] MEDS ORDERED: KETOROLAC 30 MG/ML 1 ML VIAL IVP STA (16:52)
--- NOTE | 2018-12-20 17:08 | ED ---
Male Urogenital HPI - General Chief complaint: Urogenital Stated complaint: kidney Stone Time Seen by Provider: 12/20/18 16:25 Source: patient Mode of arrival: ambulatory Limitations: no limitations - History of Present Illness Initial comments: Patient is a 53-year-old male presenting to the emergency Department with complaints of left-sided flank pain secondary to kidney stone. Patient states he went to [facility] on Wednesday, 2 days ago for same complaint. Patient states they did do lab work and computed tomography scan and found stones on the left and right kidney. Patient does not recall how big they are, but thinks they are small. Patient states they were able to control his pain and he was discharged with Flomax, pain medication, Zofran, and Ceftin. Patient states his pain returned last night and more severe than it has been. Patient states he has been nauseous as well. Patient states his pain is in the left flank with mild radiation into the left side. Patient states they called the urologist that treated him but states he is not working today and they recommended him coming here for further treatment. He denies fever, chills, diarrhea. Patient has no other complaints at this time. - Related Data Home Medications Medication Instructions Recorded Confirmed Losartan Potassium 50 mg PO HS 11/01/17 12/20/18 Ubidecarenone [Co Q-10] 200 mg PO HS 11/01/17 12/20/18 Cefuroxime Axetil [Ceftin] 500 mg PO BID 12/20/18 12/20/18 HYDROcodone/APAP 10-325MG [[place] 1 tab PO Q6H PRN 12/20/18 12/20/18 10-325] Ibuprofen [Motrin Ib] 600 mg PO TID PRN 12/20/18 12/20/18 Melatonin 10 mg PO HS 12/20/18 12/20/18 Ondansetron [Zofran ODT] 4 mg PO TID PRN 12/20/18 12/20/18 Rosuvastatin Calcium [Crestor] 40 mg PO HS 12/20/18 12/20/18 Tamsulosin HCl [Flomax] 0.4 mg PO HS 12/20/18 12/20/18 Previous Rx's Medication Instructions Recorded Ketorolac [Toradol] 10 mg PO Q8HR #15 tab 12/20/18 Allergies Allergy/AdvReac Type Severity Reaction Status Date / Time sulfamethoxazole Allergy Itching Verified 12/20/18 16:33 [From Bactrim] trimethoprim [From Bactrim] Allergy Itching Verified 12/20/18 16:33 ciprofloxacin [From Cipro] AdvReac Itching Verified 12/20/18 16:33 ciprofloxacin HCl AdvReac Itching Verified 12/20/18 16:33 [From Cipro] Review of Systems ROS Statement: Those systems with pertinent positive or pertinent negative responses have been documented in the HPI. ROS Other: All systems not noted in ROS Statement are negative. Past Medical History Past Medical History: Hyperlipidemia, Skin Disorder Additional Past Medical History / Comment(s): HX PALPITATIONS, RECENT FX RT CLAVICLE WITH ORIF-08/16/13-NOW INFECTED, PAST HX FX TIBIA/FIBULA AND RT ELBOW FX History of Any Multi-Drug Resistant Organisms: None Reported Past Surgical History: Orthopedic Surgery Additional Past Surgical History / Comment(s): ORIF TIB-FIB WITH PINS AND LATER REMOVAL, RT ELBOW SX, RECENT ORIF RT CLAVICLE 08/16/13 Past Anesthesia/Blood Transfusion Reactions: No Reported Reaction Past Psychological History: Anxiety Smoking Status: Never smoker Past Alcohol Use History: None Reported Past Drug Use History: None Reported - Past Family History Daughter(s) Family Medical History: Cancer General Exam - General Exam Comments Initial Comments: GENERAL: Well-appearing, well-nourished and in mild distress secondary to acute pain. HEAD: Atraumatic, normocephalic. EYES: Pupils equal round and reactive to light, extraocular movements intact, sclera anicteric, conjunctiva are normal. ENT: TMs normal, nares patent, oropharynx clear without exudates. Moist mucous membranes. NECK: Normal range of motion, supple without lymphadenopathy or JVD. LUNGS: Breath sounds clear to auscultation bilaterally and equal. No wheezes rales or rhonchi. HEART: Regular rate and rhythm without murmurs, rubs or gallops. ABDOMEN: Soft, nontender, normoactive bowel sounds. No guarding, no rebound. No masses appreciated. Left CVA tenderness, left side tenderness.. : Deferred EXTREMITIES: Normal range of motion, no pitting or edema. No clubbing or cyanosis. NEUROLOGICAL: Cranial nerves II through XII grossly intact. Normal speech, norm al gait. PSYCH: Normal mood, normal affect. SKIN: Warm, Dry, normal turgor, no rashes or lesions noted. Limitations: no limitations Course Vital Signs 12/20/18 12/20/18 15:49 18:15 Temperature 97.8 F Pulse Rate 87 86 Respiratory 16 18 Rate Blood Pressure 167/86 162/94 O2 Sat by Pulse 97 93 L Oximetry Medical Decision Making - Medical Decision Making Patient is a 53-year-old male presenting with a left-sided flank pain secondary to kidney stone. Patient was recently seen at [facility] for the same complaint. Patient had full workup including computed tomography scan. We were able to obtain results from that hospital. CT shows 2 mm and 3 mm kidney stones. Nonobstructing. Patient was given Toradol, Reglan, fluids with relief in pain. CBC has white count of 14.3, likely reactive. CMP is within normal limits. Lactic acid is 1.3. Small amount of blood in the UA. Patient is stable for discharge. Patient will be given Toradol for home and will continue with Zofran and Flomax. Patient will also continue with Ceftin. Patient will follow up with urology. Return parameters were discussed with the patient he verbalizes understanding. Case discussed with Dr. Tong. - Lab Data Result diagrams: 12/20/18 17:09 12/20/18 17:09 Lab Results 12/20/18 12/20/18 12/20/18 Range/Units 17:09 17:09 17:09 WBC 14.3 H (3.8-10.6) k/uL RBC 4.61 (4.30-5.90) m/uL Hgb 14.2 (13.0-17.5) gm/dL Hct 42.1 (39.0-53.0) % MCV 91.3 (80.0-100.0) fL MCH 30.8 (25.0-35.0) pg MCHC 33.7 (31.0-37.0) g/dL RDW 14.2 (11.5-15.5) % Plt Count 257 (150-450) k/uL Neutrophils % 82 % Lymphocytes % 10 % Monocytes % 7 % Eosinophils % 1 % Basophils % 0 % Neutrophils # 11.7 H (1.3-7.7) k/uL Lymphocytes # 1.5 (1.0-4.8) k/uL Monocytes # 0.9 (0-1.0) k/uL Eosinophils # 0.1 (0-0.7) k/uL Basophils # 0.0 (0-0.2) k/uL Sodium 138 (137-145) mmol/L Potassium 4.6 (3.5-5.1) mmol/L Chloride 102 (98-107) mmol/L Carbon Dioxide 24 (22-30) mmol/L Anion Gap 12 mmol/L BUN 14 (9-20) mg/dL Creatinine 1.39 H (0.66-1.25) mg/dL Est GFR (CKD-EPI)AfAm 67 (>60 ml/min/1.73 sqM) Est GFR (CKD-EPI)NonAf 58 (>60 ml/min/1.73 sqM) Glucose 110 H (74-99) mg/dL Plasma Lactic Acid Toni 1.3 (0.7-2.0) mmol/L Calcium 9.9 (8.4-10.2) mg/dL Total Bilirubin 0.7 (0.2-1.3) mg/dL AST 21 (17-59) U/L ALT 17 L (21-72) U/L Alkaline Phosphatase 66 (38-126) U/L Total Protein 7.5 (6.3-8.2) g/dL Albumin 4.5 (3.5-5.0) g/dL Urine Color Urine Appearance (Clear) Urine pH (5.0-8.0) Ur Specific [place] (1.001-1.035) Urine Protein (Negative) Urine Glucose (UA) (Negative) Urine Ketones (Negative) Urine Blood (Negative) Urine Nitrite (Negative) Urine Bilirubin (Negative) Urine Urobilinogen (<2.0) mg/dL Ur Leukocyte Esterase (Negative) Urine RBC (0-5) /hpf Urine WBC (0-5) /hpf Ur Squamous Epith Cells (0-4) /hpf Urine Mucus (None) /hpf 12/20/18 Range/Units 17:09 WBC (3.8-10.6) k/uL RBC (4.30-5.90) m/uL Hgb (13.0-17.5) gm/dL Hct (39.0-53.0) % MCV (80.0-100.0) fL MCH (25.0-35.0) pg MCHC (31.0-37.0) g/dL RDW (11.5-15.5) % Plt Count (150-450) k/uL Neutrophils % % Lymphocytes % % Monocytes % % Eosinophils % % Basophils % % Neutrophils # (1.3-7.7) k/uL Lymphocytes # (1.0-4.8) k/uL Monocytes # (0-1.0) k/uL Eosinophils # (0-0.7) k/uL Basophils # (0-0.2) k/uL Sodium (137-145) mmol/L Potassium (3.5-5.1) mmol/L Chloride (98-107) mmol/L Carbon Dioxide (22-30) mmol/L Anion Gap mmol/L BUN (9-20) mg/dL Creatinine (0.66-1.25) mg/dL Est GFR (CKD-EPI)AfAm (>60 ml/min/1.73 sqM) Est GFR (CKD-EPI)NonAf (>60 ml/min/1.73 sqM) Glucose (74-99) mg/dL Plasma Lactic Acid Toni (0.7-2.0) mmol/L Calcium (8.4-10.2) mg/dL Total Bilirubin (0.2-1.3) mg/dL AST (17-59) U/L ALT (21-72) U/L Alkaline Phosphatase (38-126) U/L Total Protein (6.3-8.2) g/dL Albumin (3.5-5.0) g/dL Urine Color Yellow Urine Appearance Clear (Clear) Urine pH 5.0 (5.0-8.0) Ur Specific [place] 1.009 (1.001-1.035) Urine Protein Negative (Negative) Urine Glucose (UA) Negative (Negative) Urine Ketones Negative (Negative) Urine Blood Small H (Negative) Urine Nitrite Negative (Negative) Urine Bilirubin Negative (Negative) Urine Urobilinogen <2.0 (<2.0) mg/dL Ur Leukocyte Esterase Negative (Negative) Urine RBC 1 (0-5) /hpf Urine WBC <1 (0-5) /hpf Ur Squamous Epith Cells <1 (0-4) /hpf Urine Mucus Rare H (None) /hpf Disposition Clinical Impression: Kidney stone on left side Disposition: HOME SELF-CARE Condition: Stable Instructions (If sedation given, give patient instructions): Kidney Stones (ED) Additional Instructions: Please return to the Emergency Department if symptoms worsen or any other concerns. Continue using Flomax, antibiotic. Use Toradol for pain relief. Follow-up with urology as discussed. Prescriptions: Ketorolac [Toradol] 10 mg PO Q8HR #15 tab Is patient prescribed a controlled substance at d/c from ED?: No Referrals: Jorge Alberto Luna DO [Primary Care Provider] - 1-2 days Jonathan Soriano MD [STAFF PHYSICIAN] - 1-2 days
[2018-12-20 17:25] LABS: Appearance,Urine Clear (Clear); Bilirubin,Urine Negative (Negative); Blood,Urine Small (Negative); Color,Urine Yellow; Glucose,Urine (UA) Negative (Negative); Ketones,Urine Negative (Negative); Leukocyte Esterase,Urine Negative (Negative); Mucus,Urine Rare /hpf; Nitrite,Urine Negative (Negative); Protein,Urine Negative (Negative); RBC,Urine 1 /hpf (0-5); Specific Gravity,Urine 1.009 (1.001-1.035); Squamous Epithelial Cell,Urine <1 /hpf (0-4); Urobilinogen,Urine <2.0 mg/dL (<2.0)
[2018-12-20 17:27] LABS: Basophils % (A) 0 %; Eosinophils # (A) 0.1 k/uL (0-0.7); Eosinophils % (A) 1 %; HCT 42.1 % (39.0-53.0); HGB 14.2 gm/dL (13.0-17.5); Lymphocytes # (A) 1.5 k/uL (1.0-4.8); Lymphocytes % (A) 10 %; MCH 30.8 pg (25.0-35.0); MCHC 33.7 g/dL (31.0-37.0); MCV 91.3 fL (80.0-100.0); Mean Platelet Volume 6.6; Monocytes # (A) 0.9 k/uL (0-1.0); Monocytes % (A) 7 %; Neutrophils # (A) 11.7 k/uL (1.3-7.7); Neutrophils % (A) 82 %; Platelet Count 257 k/uL (150-450); RBC 4.61 m/uL (4.30-5.90); RDW 14.2 % (11.5-15.5); WBC 14.3 k/uL (3.8-10.6)
[2018-12-20 17:33] LABS: Albumin 4.5 g/dL (3.5-5.0); Calcium 9.9 mg/dL (8.4-10.2); Potassium 4.6 mmol/L (3.5-5.1); Total Bilirubin 0.7 mg/dL (0.2-1.3); Total Protein 7.5 g/dL (6.3-8.2)
[2018-12-20 18:19] VITALS: BP 162/94; PULSE 86; RESP 18
== END 2018-12-20 18:50 | disposition home or self-care (01) ==
LOC: EC 15:41
DX: N20.0 Calculus of kidney (principal); E78.5 Hyperlipidemia, unspecified; Z79.899 Other long term (current) drug therapy; Z88.1 Allergy status to other antibiotic agents; Z88.2 Allergy status to sulfonamides
CPT/HCPCS: 36415; 80053; 83605; 85025; 81001; 99284; 96374; 96375; 96361; J2765; J1885

== ENCOUNTER → 2019-01-02 | Outpatient (CLI) | payer OTHER ==
--- NOTE | 2019-01-03 08:42 | US ---
EXAMINATION TYPE: US kidneys/renal and bladder DATE OF EXAM: 01/02/2019 COMPARISON: NONE CLINICAL HISTORY: N28.1 RENAL CYST. Left renal cyst EXAM MEASUREMENTS: Right Kidney: 13.0 x 6.8 x 5.5 cm Left Kidney: 13.9 x 7.6 x 5.6 cm Right Kidney: No hydronephrosis or masses seen Left Kidney: No hydronephrosis. Cystic lesion visualized mid pole measuring 3.6 x 2.1 x 3.1 cm. This is anechoic with increased through transmission. No internal complexity. Bladder: wnl Bilateral Jets seen: Yes There is no evidence for hydronephrosis at this point in time. No nephrolithiasis is seen. The uri nary bladder is anechoic. Bilateral ureteral jets are seen. IMPRESSION: Bosniak I benign appearing left renal cyst measuring 3.6 cm.
== END | disposition home or self-care (01) ==
LOC: RADUSWWP 15:52
PROVIDERS: ATTEND Urology
DX: N28.1 Cyst of kidney, acquired (principal); Z88.1 Allergy status to other antibiotic agents; Z88.2 Allergy status to sulfonamides
CPT/HCPCS: 76770

== ENCOUNTER → 2019-02-23 | Outpatient (CLI) | payer OTHER ==
[2019-02-23 23:39] LABS: Cyclic Citrull Pep IgG Unit <0.5 U/mL; Cyclic Citrullinated Pep IgG NEGATIVE (NEGATIVE)
[2019-02-24 00:20] LABS: Rheumatoid Factor 5 IU/mL (0-15)
[2019-02-24 00:22] LABS: African American GFR (CKD) 98.5 (60.0-200.0); C Reactive Protein <0.4 mg/dL (0.0-0.8); Calcium 10.2 mg/dL (8.7-10.3); Carbon Dioxide 26.9 mmol/L (21.6-31.8); Chloride 104 mmol/L (96-109); Magnesium 2.2 mg/dL (1.5-2.4); Phosphorus 4.5 mg/dL (2.4-5.1); Potassium 4.6 mmol/L (3.5-5.5); Sodium 141 mmol/L (135-145)
[2019-02-24 00:24] LABS: Creatine Kinase 123 U/L (35-257); Uric Acid 5.3 mg/dL (3.7-8.7)
== END ==
LOC: LABWHC1 14:42
PROVIDERS: ATTEND Urology
DX: M13.0 Polyarthritis, unspecified (principal)
CPT/HCPCS: 36415; 82310; 82374; 82435; 82550; 82565; 83735; 84100; 84132; 84295; 84550; 85652; 86038; 86140; 86200; 86431